=== PATIENT | female | born 1975 | race African-American/Black ===

== ENCOUNTER 2018-05-12 21:14 | Emergency (ER) | payer OTHER ==
[2018-05-12] MEDS ORDERED: Ibuprofen TAB* 600 MG PO ONE (22:05)
[2018-05-12] MEDS ORDERED: Cephalexin CAP* 500 MG PO ONE (23:57)
--- NOTE | 2018-05-12 23:59 | ED ---
Upper Extremity Pain - HPI Summary HPI Summary: Patient complains of crush injury to right thumb. Denies loss of sensation or function distally. Bleeding controlled. No anti-coag. Denies any other pain, injury, symptoms. - History of Current Complaint Chief Complaint: EDExtremityUpper Stated Complaint: RT THUMB INJURY Time Seen by Provider: 05/12/18 21:42 Hx Obtained From: Patient Hx Last Menstrual Period: 2013, spotty period Mechanism Of Injury: Blunt Trauma Onset/Duration: Started Hours Ago Timing: Constant Severity Initially: Moderate Severity Currently: Moderate Pain Location: Finger Character: Throbbing Aggravating Factor(s): Movement Associated Signs & Symptoms: Positive: Swelling - Allergies/Home Medications Allergies/Adverse Reactions: Allergies Allergy/AdvReac Type Severity Reaction Status Date / Time Quinolones Allergy Itching Verified 05/12/18 21:20 PMH/Surg Hx/FS Hx/Imm Hx Endocrine/Hematology History: Denies: Hx Anticoagulant Therapy, Hx Diabetes, Hx Thyroid Disease Cardiovascular History: Denies: Hx Hypertension, Hx Pacemaker/ICD Respiratory History: Denies: Hx Asthma, Hx Chronic Obstructive Pulmonary Disease (COPD) GI History: Denies: Hx Ulcer History: Denies: Hx Dialysis, Hx Renal Disease Sensory History: Denies: Hx Hearing Aid Neurological History: Denies: Hx CVA Psychiatric History: Denies: Hx Panic Disorder Infectious Disease History: No Infectious Disease History: Denies: Hx Hepatitis, Hx Human Immunodeficiency Virus (HIV), History Other Infectious Disease, Traveled Outside the [place] in Last 30 Days - Social History Alcohol Use: None Substance Use Type: Reports: None Smoking Status (MU): Never Smoked Tobacco Review of Systems Constitutional: Negative Eyes: Negative ENT: Negative Cardiovascular: Negative Respiratory: Negative Gastrointestinal: Negative Genitourinary: Negative Musculoskeletal: Negative Positive: Bruising Neurological: Negative Psychological: Normal All Other Systems Reviewed And Are Negative: Yes Physical Exam - Summary Physical Exam Summary: Laceration to dorsal surface of right thumb at base of right fingernail. Mild swelling to the distal end of right thumb. PMS intact distally. Vital Signs On Initial Exam: Initial Vitals Temp Pulse Resp BP Pulse Ox 97.7 F 73 16 148/73 100 05/12/18 21:17 05/12/18 21:17 05/12/18 21:17 05/12/18 21:17 05/12/18 21:17 Procedures - Laceration/Wound Repair 1 Location: upper extremity Description: Linear Anesthesia: Digital, 1.0% Length, Depth and Shape: 2cm x .5cm Betadine Prep?: Yes Irrigated w/ Saline (ccs): 30 Laceration/Wound Explored: clean Debridement: minimal Number of Sutures: 4 - 4.0 ethilon Layer Closure?: No Diagnostics - Vital Signs Vital Signs Temp Pulse Resp BP Pulse Ox 05/12/18 21:17 97.7 F 73 16 148/73 100 - Laboratory Lab Statement: Any lab studies that have been ordered have been reviewed, and results considered in the medical decision making process. - Radiology rt thumb Xray Interpretation: Positive (See Comments) - tuft fracture Course/Dx - Course Course Of Treatment: Patient complains of crush injury to right thumb. Denies loss of sensation or function distally. Bleeding controlled. No anti-coag. Denies any other pain, injury, symptoms. Physical exam:Laceration to dorsal surface of right thumb at base of right fingernail. Mild swelling to the distal end of right thumb. PMS intact distally. X-ray positive for tuft fracture right thumb. Thumb nail replaced and sutured in place. Not open fracture. Finger brace placed on right thumb. Follow-up with orthopedics Dr. Lentz. Rx for Keflex. - Diagnoses Provider Diagnoses: Closed fracture of tuft of distal phalanx of finger, Laceration Discharge - Sign-Out/Discharge Documenting (check all that apply): Patient Departure - Discharge Plan Condition: Stable Disposition: HOME Prescriptions: Cephalexin CAP* [Keflex CAP*] 500 mg PO TID 10 Days #30 cap Patient Education Materials: Care For Your Stitches (ED), Laceration (ED), Finger Fracture (ED), Finger Laceration (ED) Referrals: Sarah Truong MD [Primary Care Provider] - Gilberto Lentz MD [Medical Doctor] - Additional Instructions: Sutures out in 10 days. Wash wound with warm running water and soap. Keep splint on until follow-up with orthopedic hand surgeon Dr. Lentz. Take antibiotics as directed. Return to the ED for any new or worsening symptoms - Billing Disposition and Condition Condition: STABLE Disposition: Home
[2018-05-13 01:10] VITALS: BP 112/69
--- NOTE | 2018-05-13 07:56 | RAD ---
HISTORY: injury, crush injury to first digit of right hand COMPARISONS: None VIEWS: 3 , Frontal, lateral, and oblique views of the first digit of the right hand FINDINGS: BONE DENSITY: Normal. BONES: There is a transverse, comminuted, nondisplaced fracture of the tuft of the distal phalanx of the first digit. JOINTS: There is no arthropathy. ALIGNMENT: There is no dislocation. SOFT TISSUES: Unremarkable. OTHER FINDINGS: None. IMPRESSION: FRACTURE OF THE TUFT OF DISTAL PHALANX OF THE FIRST DIGIT OF THE RIGHT HAND R0
== END 2018-05-13 01:09 | disposition home or self-care (01) ==
LOC: ED 21:14
DX: S67.01XA Crushing injury of right thumb, initial encounter (principal); S62.524A Nondisplaced fracture of distal phalanx of right thumb, initial encounter for closed fracture; S61.011A Laceration without foreign body of right thumb without damage to nail, initial encounter; X58.XXXA Exposure to other specified factors, initial encounter; Y92.9 Unspecified place or not applicable
CPT/HCPCS: 12001; 99282; A9270-GY